=== PATIENT | female | born 1930 | race Caucasian/White ===

== ENCOUNTER 2017-01-05 18:06 | Emergency (ER) | payer OTHER ==
[~2017-01-05] VITALS: Ht 175.3 cm; Wt 59.9 kg
[~2017-01-05 18:06] MED LIST: ATROVENT H0.017 MG/A IH; ELAVIL50 MG PO; FLUTICASON0.05 MG/A2 NS; IPRATROPIUM BRO IH; KEFLEX250 MG PO; LACTINEX1 TAB.CHEW PO; LEVOTHYROXINE0.05 M1 PO; MACROBID100 M1 PO; MIRAPEX0.125 MG PO; PLAVIX75 MG PO; PREMARIN0.3 M1 PO; PROTONIX40 MG PO; QUINAPRIL20 MG PO; SYNTHROID0.075 MG PO; [UNRECOGNIZED DRUG - OTHER] PO
[2017-01-05 18:10] VITALS: BP 138/82
--- NOTE | 2017-01-05 18:46 | NUR ---
86/F BIBA TO ED WITH C/O LEAKING WAGGONER CATHETER. PT DENIES PAIN. NO MEDICAL COMPLAINTS. LUNGS CLEAR BILAT. HR EVEN AND REGULAR. AAOX4. VSS. NO SIGNS OF DISTRESS.
--- NOTE | 2017-01-05 19:15 | NUR ---
REPORT RECEIVED FROM KANDICE LAWRENCE. ASSUMED CARE OF THE PT.
--- NOTE | 2017-01-05 20:30 | NUR ---
PT'S WAGGONER CATHETER FROM FACILITY D/C'D W/O COMPLICATION. INSERTED NEW FR 16 WAGGONER BY DEMARIO BARROW RN. PT TOLERATED PROCEDURE WELL. URINE DRAINING WELL INTO THE BAG. NO C/O OF DISCOMFORT.
[2017-01-05 23:05] VITALS: BP 170/86
--- NOTE | 2017-01-05 23:05 | NUR ---
Patient discharged with v/s stable. Written and verbal after care instructions given and explained. Patient verbalized understanding. Ambulance Transport with [facility] to home. All questions addressed prior to discharge. Advised to follow up with PMD.
== END 2017-01-05 23:05 ==
LOC: MED 18:06
PROC: 0T2BX0Z Change Drainage Device in Bladder, External Approach (ICD-10-PCS; principal; 2017-01-05)
DX: T83.091A Other mechanical complication of indwelling urethral catheter, initial encounter (principal); I10 Essential (primary) hypertension; J45.909 Unspecified asthma, uncomplicated; Z86.73 Personal history of transient ischemic attack (TIA), and cerebral infarction without residual deficits; E07.9 Disorder of thyroid, unspecified